=== PATIENT | male | born 1970 | race Caucasian/White ===

== ENCOUNTER 2024-10-30 12:42 | Outpatient (CLI) | payer BC, SELFPAY | END 2024-10-30 12:43 | disposition home or self-care (01) | LOC: WOUND 12:43 | PROVIDERS: PCP Nurse Practitioner Family; Visit Provider Nurse Practitioner Family | DX: E11.621 Type 2 diabetes mellitus with foot ulcer (principal); I73.9 Peripheral vascular disease, unspecified; I10 Essential (primary) hypertension; L97.514 Non-pressure chronic ulcer of other part of right foot with necrosis of bone; Z79.4 Long term (current) use of insulin; Z79.84 Long term (current) use of oral hypoglycemic drugs; Z72.0 Tobacco use | CPT/HCPCS: G0463 ==

== ENCOUNTER 2024-10-31 10:07 | Outpatient (CLI) | payer BC, SELFPAY | END 2024-10-31 10:08 | disposition home or self-care (01) | LOC: WOUND 10:07 | PROVIDERS: PCP Nurse Practitioner Family; Visit Provider Nurse Practitioner Family | DX: E11.621 Type 2 diabetes mellitus with foot ulcer (principal); I73.9 Peripheral vascular disease, unspecified; I10 Essential (primary) hypertension; L97.514 Non-pressure chronic ulcer of other part of right foot with necrosis of bone; Z79.4 Long term (current) use of insulin; Z79.84 Long term (current) use of oral hypoglycemic drugs | CPT/HCPCS: G0463 ==

== ENCOUNTER 2024-10-31 10:47 | Outpatient (CLI) | payer BC, SELFPAY ==
--- OUTSIDE RECORDS SUMMARY | 2024-10-24 14:40 | XMS_ITS | Encounter Summary ---
Author Organization [facility] Address [address] [place] [address] Care Team Providers Care President Educational Institution Name Role Phone Olimpia Escalera APRN, C.N.P., M.S.N. Primary Care Provider Reason for Referral * Outpatient (Routine) - Authorized Specialty Diagnoses / Procedures Referred By Contac t Referred To Contact Family Medicine Diagnoses Diabetes Mellitus Type 2 With Diabetic Neuropathy (HCC) Daniel Vaughn M.D. [address] [place] [phone] Phone: tel: fax: [facility] Region Referral ID Status Reason Start Date Expiration Date V isits Requested Visits Authorized [id number] Authorized 10/24/2024 04/25/2026 1 1 Reason for Visit * Reason Comments Pre-op Exam Infection cleaned ou t of Amputation site on right foot. 10/28/2024 @ [facility]. Would like muscle relaxer for neck * Appointment Request (Routine) - Closed Specialty Diagnoses / Procedures Referred By Contac t Referred To Contact Family Medicine Referral ID Status Reason Start Date Expiration Date Visits Re quested Visits Authorized [id number] Closed 10/21/2024 01/21/2026 1 1 Encounter Details Date Type Department Care Team (Latest Contact Info) Description 10/24/2024 2:40 PM CDT Office Visit Department of Family Medicine, [facility], in [place] [address] [place] [id number] Daniel Vaughn M.D. [address] [place] [phone] Diabetes Mellitus Type 2 With Diabetic Neuropathy (HCC) (Primary Dx); Preoperative Exam; Hypertensive Chronic Kidney Disease With Stage 1 Through Stage 4 Chronic Kidney Disease, Or Unspecified Chronic Kidney Disease; Hyperlipidemia; Unspecified Atherosclerosis Of [place] Arteries Of Extremities Right Leg; Dependence Nicotine; Gout Discharge Disposition: Home or Self Care Social History Tobacco Use Types Packs/Day Years Used Date Smoking Tobacco: Every Day Cigarettes 1 20 Smokeless Tobacco: Never Tobacco Cessation:Ready to Q uit: No; Counseling Given: Yes Comments:refused Alcohol Use Standard Drinks/Week Comments Yes 1 (1 standard drink = 0.6 oz pur e alcohol) per pt 1 drink a week Humiliation, Afraid, Rape, and Kick questionnair e Answer Date Recorded Within the last year, have y ou been afraid of your partner or ex-partner? Patient declined 04/30/2020 Within the last year, have y ou been humiliated or emotionally abused in other ways by your partner or ex-partner? No 04/30/2020 Within the last year, have y ou been kicked, hit, slapped, or otherwise physically hurt by your partner or ex-partner? No 04/30/2020 Within the last year, have y ou been raped or forced to have any kind of sexual activity by your partner or ex-partner? No 04/30/2020 Social Connection and Isolation Panel [NHANES] A nswer Date Recorded Frequency of Communication with Friends and Fami ly Not on file 04/30/2020 Frequency of Social Gatherings with Friends and Family Not on file 04/30/2020 Attends Anabaptism Services Not on file 04/30 Do you belong to any clubs o r organizations such as sikhism groups, unions, fraternal or athletic groups, or school groups? Patient declined 04/30/2020 Attends Club or Organization Meetings Not on han e 04/30/2020 Are you , , di vorced, , never , or living with a partner? 04/30/2020 AUDIT-C Answer Date Recorded Q1: How often do you have a drink containing alc ohol? 2-3 times a week 04/30/2020 Q2: How many drinks containi ng alcohol do you have on a typical day when you are drinking? Patient declined 04/30/2020 Q3: How often do you have si x or more drinks on one occasion? Monthly 04/30/2020 Overall Financial Resource Strain (CARDIA) Answe r Date Recorded How hard is it for you to pa y for the very basics like food, housing, medical care, and heating? Not hard at all 04/30/2020 PHQ-2 Answer Date Recorded PHQ-2 Score 0 10/24/2024 Hunger Vital Sign Answer Date Recorded Within the past 12 months, y ou worried that your food would run out before you got the money to buy more. Never true 04/30/20 20 Within the past 12 months, t he food you bought just didn't last and you didn't have money to get more. Never true 04/30/2020 Depression Answer Date Recor ded PHQ-9 Total Score (max 27) 6 10/12 Nutrition Answer Date Recorded Nutrition: EVOO Fat Source No 04/30 On average, how many serving s of fruits and vegetables do you eat per day (serving size is equal to 1 cup or approximately the size of a tennis ball)? 0-1 04/30/2020 Dental Answer Date Recorded Dental: Regular Dentist Unknown 05/03/20 23 Education Answer Date Recorded What is the highest level of school you have completed or the highest degree you have received? 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 - 10/24/2024 2:40 PM CDT Venkatesh Green [phone] REASON FOR VISIT: No chief complaint on file. HISTORY OF PRESENT ILLNESS: Venkatesh Green is a 54 y.o. male who is here today for pre-operative clearance. He has no complaints and reports he is in his usual state of health. 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 He has been told he still has some infection and nonviable tissue in the area and will be having a procedure to address this. REQUESTING PROVIDER: Dr Krause, [facility] [place] PROPOSED PROCEDURE: Revision of toe amputation right foot DATE OF PROCEDURE: 10/28/2024 INDICATIONS FOR PROCEDURE: HOSPITAL/SURGICAL FACILITY:[facility] Type of Anesthesia Anticipated: Unknown Primary Physician: Olimpia Escalera APRN, C.N.P., M.S.N. CARDIOVASCULAR STATUS History of ischemia heart disease: no Previous IN: no Exertional chest pain or SOB:No History of cerebrovascular disease: no History of heart failure: no Can you climb a flight of stairs or walk up a hill? Can you walk on level ground at 4 mph (6.4 kph) for at least 2 blocks? PULMONARY STATUS Asthma/COPD: no RENAN: no Smoking history: yes 1/2 PPD Renal insufficiency: no Liver disease or cirrhosis: no Bloodborne infectious history: no Appliances or implants: no Presence of loose teeth or dental prosthetics: yes Dentures Alcohol dependence: no Diabetes mellitus: yes History of anaesthesia complications:No Family history of anesthesia complications:No Family history of malignant hyperthermia or pseudocholinesterase deficiency: No History of bleeding complications:No History of blood transfusions: No Preoperative Questions: NO - Do you currently have a cold, bronchitis or other respiratory infection? NO - Have you had a cold, bronchitis or other respiratory infection within the last 2 weeks? NO - Do you or anyone in your family have previous history of blood clots? NO - Do you or does anyone in your family have a serious bleeding problem such as prolonged bleeding following surgeries or cuts? NO - Have you ever had problems with anemia or been told to take iron pills? NO - Have you had any abnormal blood loss such as black, tarry or bloody stools, or abnormal vaginal bleeding? NO - Have you ever had a blood transfusion? NO - Do you have sleep apnea, excessive snoring or daytime drowsiness? NO - Do you have any prosthetic heart valves? NO - Do you have prosthetic joints? NO - Is there any chance that you may be ? PAST MEDICAL HISTORY Medical History[1] PAST SURGICAL HISTORY Surgical History[2] MEDICATIONS Current Medications[3] ALLERGIES No Known Allergies FAMILY HISTORY Family History[4] The following portions of the patient's history were reviewed and updated as appropriate: Allergies, current medications, family history, medical history, social history, surgical history and problemlist. PHYSICAL EXAMINATION: There were no vitals taken for this visit. There is no height or weight on file to calculate BMI. Constitutional General: He is not in acute distress. Appearance: Normal appearance. Neck Vascular: No carotid bruit. Cardiovascular Rate and Rhythm: Normal rate and regular rhythm. Heart sounds: Normal heart sounds. No murmur heard. Pulmonary Breath sounds: Normal breath sounds. No wheezing or rales. Abdominal General: There is no distension. Palpations: Abdomen is soft. There is no mass. Tenderness: There is no abdominal tenderness. Musculoskeletal Cervical back: Neck supple. No tenderness. Lymphadenopathy Cervical: No cervical adenopathy. Neurological Mental Status: He is alert. DIAGNOSTICS/LAB Lab Results Component Value Date NA 141 08/26/2024 CL 101 08/26/2024 CREATININE 0.82 08/26/2024 EGFR >90 08/26/2024 BUN 17 08/26/2024 ANIONGAP 13 08/26/2024 GLUCOSE 144 (H) 08/26/2024 CALCIUM 9.8 08/26/2024 Lab Results Component Value Date WBC 8.9 08/26/2024 HGB 16.4 08/26/2024 HCT 48.6 08/26/2024 MCV 86.2 08/26/2024 PLT 456 (H) 08/26/2024 Lab Results Component Value Date HGBA1C 10.4 (H) 08/26/2024 HGBA1C 8.1 (H) 11/01/2023 HGBA1C 7.0 (H) 10/13/2022 Lab Results Component Value Date CHOL 115 11/01/2023 Lab Results Component Value Date HDL 41 11/01/2023 Lab Results Component Value Date LDLCALC 62 11/01/2023 Lab Results Component Value Date TRIG 54 11/01/2023 Lab Results Component Value Date TTLCHOLHDLRT 3.5 05/03/2012 ASSESSMENT #1 Preoperative Exam He is medically optimized as much as feasibly possible preoperatively. The patient is of medically satisfactory risk profile for planned procedure. He was provided with a written dosing instructions regarding preoperative use of his medications. Additionally, we discussed he should stop empagliflozin today and clopidogrel 3 days pre-procedure.He expressed understanding. #2 Diabetes Mellitus Type 2 With Diabetic Neuropathy (HCC) He was encouraged to schedule follow-up with his PCP as soon as possible to initiate more intensivemanagement of this problem. #3 Hypertensive Chronic Kidney Disease With Stage 1 Through Stage 4 Chronic Kidney Disease, Or Unspecified Chronic Kidney Disease Normotensive with current regimen. #4 Hyperlipidemia Most recent lipid profile was favorable. We discussed importance of long-term statin therapy. #5 Unspecified Atherosclerosis Of [place] Arteries Of Extremities Right Leg He recently had vascular procedures of his right leg and reports this has been of benefit. #6 Dependence Nicotine He was counseled regarding smoking cessation. #7 Gout He has recently been asymptomatic. Perez Vaughn M.D. 10/24/2024 2:00 PM CDT [1] Past Medical History: Diagnosis Date Diabetes Mellitus NOS [2] Past Surgical History: Procedure Laterality Date SPINE SURGERY [3] Current Outpatient Medications: allopurinoL (Zyloprim) 100 mg tablet, Take 1 tablet (100 mg total) by mouth daily., Disp: 100 tablet, Rfl: 1 amLODIPine (Norvasc) 10 mg tablet, Take 1 tablet (10 mg total) by mouth daily., Disp: 100 tablet, Rfl: [address] tablet, Take 1 tablet by mouth daily., Disp: , Rfl: atorvastatin (Lipitor) 40 mg tablet, Take 1 tablet (40 mg total) by mouth daily., Disp: 100 tablet,Rfl: 1 empagliflozin (Jardiance) 25 mg tablet, Take 1 tablet (25 mg total) by mouth every morning before breakfast., Disp: 100 tablet, Rfl: 1 gabapentin (Neurontin) 300 mg capsule, Take 1 capsule (300 mg total) by mouth at bedtime., Disp: 100 capsule, Rfl: 1 glimepiride (AmaryL) 4 mg tablet, Take 2 tablets (8 mg total) by mouth daily with breakfast., Disp:200 tablet, Rfl: 1 ibuprofen 800 mg tablet, Take 800 mg by mouth every 6 (six) hours as needed for pain., Disp: , Rfl: insulin glargine (Lantus Solostar U-100 Insulin) 100 unit/mL (3 mL) injection, Inject 16 Units under the skin at bedtime., Disp: 14.4 mL, Rfl: 2 lisinopriL 40 mg tablet, Take 1 tablet (40 mg total) by mouth daily., Disp: 100 tablet, Rfl: 1 metFORMIN XR (Glucophage-XR) 500 mg 24 hr tablet, Take 4 tablets (2,000 mg total) by mouth daily with breakfast., Disp: 360 tablet, Rfl: 1 metoprolol succinate (Toprol XL) 50 mg 24 hr tablet, Take 1 tablet (50 mg total) by mouth daily. Donot crush or chew., Disp: 100 tablet, Rfl: 1 [4] Family History Problem Relation Name Age of Onset Diabetes Mother 54 Diabetes Brother Chidi Tobacco abuse Father 91 CABG - Coronary artery bypass graft Father Diabetes Maternal Grandmother Diabetes Brother Fermin Coronary artery disease Brother Fermin documented in this encounter Plan of Treatment Upcoming Encounters Date Type Department Care Team (Late st Contact Info) Description 11/24/2024 8:10 AM CDT Appointment Department of Laboratory Medicine in [address] [place] [phone] Olimpia Escalera APRN, C.N.P., M.S.N. [address] [place] [address], [place] [phone] 11/25/2024 11:40 AM CDT Office Visit Department of Family Medicine, [facility], in [address] [place] [phone] Olimpia Escalera APRN, C.N.P., M.S.N. [address] [place] [address], [place] [phone] Discharge Disposition: Home or Self Care Scheduled Referrals Name Type Priority Associated Diagnoses Orde r Schedule Family Medicine office visit (clinic) Outpatient Referral Routine Diabetes Mellitus Type 2 With Diabetic Neuropathy (HCC) Expected: 11/23/2024, Expires: 01/24/2026 documented as of this encounter Visit Diagnoses Diagnosis Diabetes Mellitus Type 2 With Diabetic Neuropathy (HCC)- Primary Preoperative Exam Hypertensive Chronic Kidney Disease With Stage 1 Through Stage 4 Chronic Kidney Disease, Or Unspecified Chronic Kidney Disease Hyperlipidemia Unspecified Atherosclerosis Of [place] Arteries Of Extremities Right Leg Dependence Nicotine Gout documented in this encounter Additional Health Concerns Assessment Noted Time PHQ-9 Depression Total Score: 6 10/13/19 20 2:04 PM CDT documented as of this encounter Care Teams President Educational Institution Relationship Specialty Start Date End Date Olimpia Escalera APRN, C.N.P., M.S.N. [address] [place] [phone] PCP - General 08/21/19 documented as of this encounter
--- NOTE | 2024-10-31 10:45 | CRLHL7_ITS ---
For Patients: As a result of the Century Cures Act, medical imaging exams and procedure reports are released immediately into your electronic medical record. You may view this report before your referring provider. If you have questions, please contact your health care provider. Indication: Nicotine withdrawal, hypertension and diabetes. Technique: Chest 2 views Comparison: None Findings/Impression: Cardiovascular and mediastinum: Heart size and vasculature are normal in caliber and appearance. Mediastinum is within normal limits. Lungs and pleural spaces: Lungs are clear. No sign of infiltrate or mass. No sign of pleural effusion. No pneumothorax. Bones and soft tissues: No significant findings. Dictated by Reji Scott MD @ 10/31/2024 11:52:47 AM (Electronically Signed)
--- OUTSIDE RECORDS SUMMARY | 2024-10-31 10:56 | XMS_ITS | Clinical Summary ---
Author Organization [facility] Address [address] [place] [address] Care Team Providers Care Engraver Copperplate Name Role Phone Olimpia Escalera APRN, C.Naila, M.S.N. Primary Care Provider Source Comments Patient records contain information from all sites at [facility]. For routine questions regarding patient records, call [phone] during business hours, M-F 8:00 AM - 5:00 PM Central Time. Record requests for emergency care only can be directed to [phone] at any time.[facility] Allergies No known active allergies Medications aspirin [address] tablet Take 1 tablet by mouth daily. 1 Active gabapentin (Neurontin) 300 mg capsule Take 1 capsule (300 mg total) by mouth at bedtime. 100 capsule 1 4 Active empagliflozin (Jardiance) 25 mg tablet Take 1 tablet (25 mg total) by mouth every morning before breakfast. 100 tablet 1 4 Active lisinopriL 40 mg tablet Take 1 tablet (40 mg total) by mouth daily. 100 tablet 1 4 11/02/19 25 Active glimepiride (AmaryL) 4 mg tablet Take 2 tablets (8 mg total) by mouth daily with breakfast. 200 tablet 1 4 11/02/19 25 Active atorvastatin (Lipitor) 40 mg tablet Take 1 tablet (40 mg total) by mouth daily. 100 tablet 1 4 11/02/19 25 Active metoprolol succinate (Toprol XL) 50 mg 24 hr tablet Take 1 tablet (50 mg total) by mouth daily. Do not crush or chew. 100 tablet 1 4 Active amLODIPine (Norvasc) 10 mg tablet Take 1 tablet (10 mg total) by mouth daily. 100 tablet 1 4 Active allopurinoL (Zyloprim) 100 mg tablet Take 1 tablet (100 mg total) by mouth daily. 100 tablet 1 4 11/02/19 25 Active ibuprofen 800 mg tablet Take 800 mg by mouth every 6 (six) hours as needed for pain. Active clopidogreL (Plavix) 75 mg tablet Take 75 mg by mouth daily. Active doxycycline hyclate (LymePak) 100 mg tablet Take 100 mg by mouth 2 (two) times a day. Active oxyCODONE (Roxicodone) 5 mg immediate release tablet Take 5 mg by mouth every 6 (six) hours as needed for severe pain or score 7-10 of 10. Active insulin glargine (Lantus Solostar U-100 Insulin) 100 unit/mL (3 mL) pen Inject 16 Units under the skin at bedtime. 14.4 mL 2 5 10/25/19 26 Active metFORMIN XR (Glucophage-XR) 500 mg 24 hr tablet Take 4 tablets (2,000 mg total) by mouth daily with morning meal. 360 tablet 1 5 10/25/19 26 Active insulin glargine (Lantus Solostar U-100 Insulin) 100 unit/mL (3 mL) injection Inject 16 Units under the skin at bedtime. 14.4 mL 2 4 10/25/19 25 Discontinu ed(Reorder ) metFORMIN XR (Glucophage-XR) 500 mg 24 hr tablet Take 4 tablets (2,000 mg total) by mouth daily with breakfast. 360 tablet 1 4 10/25/19 25 Discontinu ed(Reorder ) Active Problems Problem Noted Date Diagnosed Date Diabetes Mellitus Type 2 With Diabetic Neuropath y 11/02/2023 Stenosis Spinal Cervical 07/07/2022 Fatty Liver 01/03/2021 Assessment & Plan (06/23/2022 3:09 PM PAPER NOVELTY MAKER): 4 light beers per day, not looking to quit Erythrocytosis 10/14/2020 Leukocytosis 10/14/2020 Assessment & Plan (06/23/2022 3:10 PM PAPER NOVELTY MAKER): Patient declines further work up Neutrophilia 10/14/2020 Thrombocytosis Unspecified 10/14/2020 Gout 09/24/2020 Unspecified Atherosclerosis Of [place] Arteries Of Extremities Right Leg 10/20/2019 Assessment & Plan (06/23/2022 3:09 PM PAPER NOVELTY MAKER): Refuses to follow-up with vascular medicine Hypertensive Chronic Kidney Disease With Stage 1 Through Stage 4 Chronic Kidney Disease, Or Unspecified Chronic Kidney Disease 10/13/2019 Assessment & Plan (06/23/2022 3:10 PM PAPER NOVELTY MAKER): BP suboptimal. Patient misses doses of his hypertension meds, states he hasn't taken them for 3/4 weeks Hyperlipidemia 10/13/2019 Assessment & Plan (06/23/2022 3:10 PM PAPER NOVELTY MAKER): Has a high risk for ASCVD, smoker, ETOH Continue atorvastatin Dependence Nicotine 05/24/2015 Assessment & Plan (06/23/2022 3:09 PM PAPER NOVELTY MAKER): 2-3 packs per day of cigarettes, not looking to quit Resolved Problems Problem Noted Date Diagnosed Date Resolved Date Maintenance Health Adult 10/13/201912/2019 Diabetes Mellitus Type 2 Hyperglycemia 11/06/2016 10/24/2024 Overview (11/18/2016): DM2 Uncontrolled Hypertension Benign Renovascular 05/24/2015 10/12/2019 Overview (10/03/2016): Hypertension (HTN) Essential Benign Encounters Date Type Department Care Team Description 10/24/2024 2:40 PM CDT Office Visit Department of Family Medicine, [facility], in [address] [address] Daniel Vaughn M.D. Diabetes Mellitus Type 2 With Diabetic Neuropathy (HCC) (Primary Dx); Preoperative Exam; Hypertensive Chronic Kidney Disease With Stage 1 Through Stage 4 Chronic Kidney Disease, Or Unspecified Chronic Kidney Disease; Hyperlipidemia; Unspecified Atherosclerosis Of [place] Arteries Of Extremities Right Leg; Dependence Nicotine; Gout Discharge Disposition: Home or Self Care 10/15/2024 Clinical Communication Department of [facility], [facility], [address] [place] [address] Olimpia Escalera APRN, C.N.P., M.S.N. 10/14/2024 Orders Only [facility] Olimpia Escalera APRN, Jennifer.N.P., M.S.N. Diabetes Mellitus Type 2 With Diabetic Neuropathy (HCC) 09/19/2024 Clinical Communication Department of Family [facility], [facility], [address] [place] [address] Olimpia Escalera APRN, C.N.P., M.S.N. 09/08/2024 Clinical Communication Department of [facility], [facility], [address] [place] [address] Olimpia Escalera APRN C.N.P., M.S.N. 09/08/2024 Clinical Communication Department of [facility], [facility], [address] [place] [address] Olimpia Escalera APRN C.N.P., M.S.N. 08/26/2024 9:34 AM CDT - 08/26/2024 11:59 PM T Hospital Encounter Department of Laboratory Medicine in [address] [place] [address] Salvador Alcaraz M.D. Atherosclerosis Of [place] Arteries Of Right Leg With Ulceration Of Other Part Of Lower Leg (HCC); Amputation Toe Status Post Right; Diabetes Mellitus Type 2 (HCC) Discharge Disposition: Home or Self Care 08/26/2024 Clinical Communication Department of Family [facility], [facility], in [address] [place] [address] Olimpia Escalera APRN, C.N.P., M.S.N. 08/17/2024 10:55 AM CDT Ancillary Procedure Department of Emergency Medicine 08/17/2024 10:50 AM CDT Ancillary Procedure Department of Emergency Medicine 08/17/2024 10:32 AM CDT - 08/17/2024 3:23 PM CDT Emergency [facility] [address] [facility] [place] [address] Kenneth Nevarez P.A.-C. Osteomyelitis ([facility]) (Primary Dx) Discharge Disposition: Acute Care Hospital 08/17/2024 - 08/17/2024 11:59 PM CDT Emergency [facility] [address] [place] [phone] Discharge Disposition: Home or Self Care 08/15/2024 Clinical Communication Department of Family Medicine, [facility], in [place], [place] [address] [facility] [place] [address] Olimpia Escalera, SHAHNAZ, C.N.P., M.S.N. 08/05/2024 Orders Only Department of Pulmonary Medicine in [place], [place] [address] [place] [address] Edmund Chew M.D. from Last 3 Months Immunizations Immunization Administration Dates Next Due DTaP (Infanrix, Tripedia) 03/10/2008 HepB Adult 11/02/2023(Deferred: Patient Ref used) Influenza, Unspecified 03/04/2020,03/14/2010,04/2008 PCV20 11/02/2023(Deferred: Patient Ref used) PPSV23 03/25/2008,03/25/2008 SARS-COV-2 (COVID-19) - PFIZ ER (Discontinued)(12 years or older) 01/28/2021,01/03/2021 Td Preservative Free (TENIVA C, DECAVAC) 10/28/2018 Tdap 03/09/2008 influenza vaccine QV(FLUBLOK ) (18 years or older) (PF) 03/04/2020 influenza vaccine quad (FLUZONE/FLUARIX) (6 months and older)(PF) 04/01/2021,02/18/2018,03/21/2017 Family History Medical History Relation Name Comments Diabetes Brother 1 Chidi Coronary artery disease Brother 4 Fermin Diabetes Brother 4 Fermin CABG - Coronary artery bypass graft Father Tobacco abuse Father Diabetes Maternal Grandmother Diabetes Mother Relation Name Status Comments Brother 1 Chidi Alive Brother 2 Urbano Alive Brother 3 Hernandez Alive Brother 4 Fermin Alive Father Alive Maternal Grandmother Mother Social History Tobacco Use Types Packs/Day Years [...] and Family Not on file 04/30/2020 Attends [employer]ism Services Not on file 04/30 Do you belong to any clubs o r organizations such as amish groups, unions, fraternal or athletic groups, or [...] Sex Assigned at Male 03/21/2017 4:02 PM PAPER NOVELTY MAKER Legal Sex Male 9:13 PM PAPER NOVELTY MAKER Gender Identity Male 03/21/2017 4:02 PM PAPER NOVELTY MAKER Sexual Orientation Straight 03/21/2017 4: 02 PM PAPER NOVELTY MAKER Last Filed Vital Signs Vital Sign Reading Time Taken Comments Blood Pressure 138/76 10/24/2024 2:31 PM CDT Pulse 80 10/24/2024 2:31 PM CDT Temperature 36.4 C (97.5 F) 10/24/2024 2:29 PM CDT Respiratory Rate 18 10/24/2024 2:29 PM CDT Oxygen Saturation 97% 08/17/2024 3:1 5 PM CDT Inhaled Oxygen Concentration - - Weight 90.3 kg (199 lb 1.2 oz) 10/24/2024 2:29 PM CDT Height 183.9 cm (6' 0.4) 11/02/2023 9: 55 AM CDT with shoes on Body Mass Index 26.7 11/02/2023 9:55 AM CDT Plan of Treatment Upcoming Encounters Date Type Department Care Team (Late st Contact Info) Description 11/24/2024 8:10 AM CDT Appointment Department of Laboratory Medicine in [address] [place] [address] Olimpia Escalera APRN, C.N.P., M.S.N. [address] [place] [address], [place] [address] 11/25/2024 11:40 AM CDT Office Visit Department of Family Medicine, [facility], in [address] [place] [address] Olimpia Escalera APRN, C.N.P., M.S.N. [address] [place] [phone] Discharge Disposition: Home or Self Care Health Maintenance Due Date Last Done Comments CT Colonography 1969 Cologuard 1969 Colonoscopy 1969 Colorectal Cancer Screening 1969 FIT 1969 HIV Screening 1969 Lung Cancer Screening 1969 Hepatitis B Vaccines (1 of 3 - 19+ 3-dose series) 1988 Pneumococcal vaccine (50+ years) (2 of 2 - PCV) 03/25/2009 03/25/2008, 03/25/2008 Zoster Vaccines (1 of 2) 2019 Dilated Eye Exam 06/26/2023 06/26/2022 (Per formed elsewhere), 10/04/2017 (Performed elsewhere), 09/24/2017 (Performed elsewhere) COVID-19 Vaccine (2023- season) 2024 01/28/2021, 01/03/2021 Influenza Vaccine (#1) 2024 , 03/04/2020, 03/04/2020, Additional history exists Urine Albumin 10/31/2024 11/01/2023, 01/14, 08/27/2020, Additional history exists Diabetic Office Visit with Foot Exam 11/01/2024 11/02/2023, 02/17/2022, 09/24/2020, Additional history exists Hemoglobin A1C 11/25/2024 08/26/2024, 10/13, 10/13/2022, Additional history exists Creatinine Level (Kidney Function Test) 08/26/2025 08/26/2024, 08/20/2024, 08/19/2024, Additional history exists Potassium Level 08/26/2025 08/26/2024, 04/0 01/2025, 08/19/2024, Additional history exists Sodium Level 08/26/2025 08/26/2024, 04/0 11/2024, 08/17/2024, Additional history exists Office Visit for Blood Pressure Check / Re-check 10/24/2025 10/24/2024 Tobacco Cessation counseling 10/24/2025 10/24/2024, 10/24/2024 Visit: Chronic Disease, age 18+ 10/24/2025 10/24/2024, 10/24/2024 DTaP,Tdap,and Td Vaccines (4 - Td or Tdap) 10/28/2028 10/28/2018, 03/10/2008, 03/09/2008 Lipid (Cholesterol) Screening 10/31/2028 11/01/2023, 02/10/2022, 12/31/2020, Additional history exists Hepatitis B Screening Discontinued 08/18/2022 Depression Screening (Annual PHQ-2) Completed 10/24/2024, 10/24/2024 IPV Vaccines Aged Out No longer eligi ble based on patient's age to complete this topic Procedures Procedure Name Priority Date/Time Associated Diagnosis Comments COMPREHENSIVE METABOLIC PANEL, S/P Routine 08/26/2024 9:41 AM CDT Atherosclerosis Of [place] Arteries Of Right Leg With Ulceration Of Other Part Of Lower Leg (HCC) Amputation Toe Status Post Right Diabetes Mellitus Type 2 (HCC) CBC WITH DIFFERENTIAL, B Routine 08/26/2024 9:41 AM CDT Atherosclerosis Of [place] Arteries Of Right Leg With Ulceration Of Other Part Of Lower Leg (HCC) Amputation Toe Status Post Right Diabetes Mellitus Type 2 (HCC) HEMOGLOBIN A1C, B Routine 08/26/2024 9:4 1 AM CDT Atherosclerosis Of [place] Arteries Of Right Leg With Ulceration Of Other Part Of Lower Leg (HCC) Amputation Toe Status Post Right Diabetes Mellitus Type 2 (HCC) MR FOOT RIGHT WITHOUT AND WITH IV CONTRAST RAD - Semiurgent (Fast; most ED patients; some inpatients) 08/18/2024 8:31 AM CDT BACTERIA / GILDA CULTURE, BLOOD STAT 08/17/2024 11:56 AM CDT BACTERIA / GILDA CULTURE, BLOOD STAT 08/17/2024 11:52 AM CDT DX TOES RIGHT 3 VIEWS RAD - Semiurgent (Fast; most ED patients; some inpatients) 08/17/2024 11:13 AM CDT EMERGENCY DEPARTMENT IMAGE EXAM Routine 08/17/2024 10:55 AM CDT BASIC METABOLIC PANEL, S/P STAT 08/17/2024 10:53 AM CDT CBC WITH DIFFERENTIAL, B STAT 08/17/2024 10:53 AM CDT LACTATE FOR SEPSIS WITH REFLEX STAT 08/17/2024 10:52 AM CDT C-REACTIVE PROTEIN (CRP), S/P STAT 08/17/2024 10:52 AM CDT EMERGENCY DEPARTMENT IMAGE EXAM Routine 08/17/2024 10:50 AM CDT ALBUMIN, RANDOM, U Routine 11/01/2023 8: 30 AM CDT Diabetes Mellitus Type 2 Hyperglycemia (HCC) LIPID PANEL, S Routine 11/01/2023 8:23 AM CDT Hypertension And Chronic Kidney Disease Stage 2 Diabetes Mellitus Type 2 Hyperglycemia (HCC) Gout HEPATITIS B SURFACE ANTIGEN Routine 08/18/2022 12:53 PM CDT Fatty Liver Diabetes Mellitus Type 2 Hyperglycemia (HCC) from Last 3 Months or Most Recently Relevant to Health Maintenance Results * (ABNORMAL) CBC with Differential, Blood (08/26/2024 9:41 AM CDT) Only the most recent of2 resultswithin the time period is included. Hemoglobin 16.4 13.2 - 16.6 g/dL 08/26/2024 10:26 AM CDT [facility] Hematocrit 48.6 38.3 - 48.6 % 08/26/2024 10:26 AM CDT [facility] Erythrocytes 5.64 4.35 - 5.65 x10(12)/L 08/26/2024 10:26 AM CDT [facility] MCV 86.2 78.2 - 97.9 fL 08/26/2024 10:26 AM CDT [facility] RBC Distrib Width 13.1 11.8 - 14.5 % 08/26/2024 10:26 AM CDT [facility] Platelet Count 456(H) 135 - 317 x10(9)/L 08/26/2024 10:26 AM CDT [facility] Leukocytes 8.9 3.4 - 9.6 x10(9)/L 08/26/2024 10:26 AM CDT [facility] Neutrophils 5.41 1.56 - 6.45 x10(9)/L 08/26/2024 10:26 AM CDT [facility] Lymphocytes 2.59 0.95 - 3.07 x10(9)/L 08/26/2024 10:26 AM CDT [facility] Monocytes 0.52 0.26 - 0.81 x10(9)/L 08/26/2024 10:26 AM CDT [facility] Eosinophils 0.27 0.03 - 0.48 x10(9)/L 08/26/2024 10:26 AM CDT [facility] Basophils 0.07 0.01 - 0.08 x10(9)/L 08/26/2024 10:26 AM CDT [facility] Blood (Blood, Venous) 08/26/2024 9:41 AM CDT 08/26/2024 9:41 AM CDT Salvador Alcaraz M.D. LAB BLOOD ADD-ON Final R esult Performing Organization Address City/[facility] Co de Phone Number [facility] [address] [place] [phone], [facility] in [address] [address] * (ABNORMAL) Hemoglobin A1c (08/26/2024 9:41 AM CDT) Hemoglobin A1c, B 10.4(H) 4.2 - 5.6 % 08/26/2024 9:59 AM CDT [facility] Comment: Hemoglobin A1c values greater than or equal to 6.5 percent are diagnostic for diabetes mellitus. Diagnosis should be confirmed by repeat testing. In diabetic patients, HbA1c goals should be discussed with healthcare provider. Blood (Blood, Venous) 08/26/2024 9:41 AM CDT 08/26/2024 9:41 AM CDT Salvador Alcaraz M.D. LAB BLOOD ADD-ON Final R esult Performing Organization Address City/[facility]/ZIP Co de Phone Number [facility] [address] [place] [phone], [facility] in [address] [address] * (ABNORMAL) Comprehensive Metabolic Panel (08/26/2024 9:41 AM CDT) Potassium, P 4.5 3.6 - 5.2 mmol/L 08/26/2024 10:01 AM CDT [facility] Sodium, P 141 135 - 145 mmol/L 08/26/2024 10:01 AM CDT [facility] Chloride, P 101 98 - 107 mmol/L 08/26/2024 10:01 AM CDT [facility] Bicarbonate, P 27 22 - 29 mmol/L 08/26/2024 10:01 AM CDT [facility] Anion Gap, P 13 7 - 15 08/26/2024 10:01 AM CDT [facility] BUN (Blood Urea Nitrogen), P 17 8 - 24 mg/dL 08/26/2024 10:01 AM CDT [facility] Creatinine 0.82 0.74 - 1.35 mg/dL 08/26/2024 10:01 AM CDT [facility] Estimated GFR (eGFR) >90 >=60 mL/min/BS A 08/26/2024 10:01 AM CDT [facility] Comment: Estimated GFR calculated using the 2020 CKD_EPI creatinine equation. Calcium, Total, P 9.8 8.6 - 10.0 mg/dL 08/26/2024 10:01 AM CDT [facility] Glucose, P 144(H) 70 - 140 mg/dL 08/26/2024 10:01 AM CDT [facility] Protein, Total, P 7.5 6.3 - 7.9 g/dL 08/26/2024 10:01 AM CDT [facility] Albumin, P 4.6 3.5 - 5.0 g/dL 08/26/2024 10:01 AM CDT [facility] Aspartate Aminotransferase (AST), P 18 8 - 48 U/L 08/26/2024 10:01 AM CDT [facility] Alkaline Phosphatase, P 81 40 - 129 U/L 08/26/2024 10:01 AM CDT [facility] Alanine Aminotransferase (ALT), P 19 7 - 55 U/L 08/26/2024 10:01 AM CDT [facility] Bilirubin, Total, P 0.3 0.0 - 1.2 mg/dL 08/26/2024 10:01 AM CDT [facility] Blood (Blood, Venous) 08/26/2024 9:41 AM CDT 08/26/2024 9:41 AM CDT us Salvador Alcaraz M.D. LAB BLOOD ADD-ON Final R esult [facility] [address] [place] [phone], [facility] in [address] [address] * MR Foot Right without and with IV Contrast (08/18/2024 8:31 AM CDT) Anatomical Region Laterality Modality Lower Extremity, Foot, Muscu loskeletal RST LOS, Musculoskeletal ARZ LOS, Muskuloskeletal FLA LOS Right Magne tic Resonance Impressions 08/18/2024 8:51 AM CDT First IP septic arthritis with surrounding osteomyelitis involving head/neck of first proximal phalanx and base of first distal phalanx. Narrative 08/18/2024 8:51 AM CDT EXAM: MR FOOT RIGHT WITHOUT AND WITH IV CONTRAST COMPARISON:Radiograph from yesterday. FINDINGS: This MRI is dedicated to the right toes. There is a wound along the dorsal aspect of first IP joint. First IP joint has joint effusion and synovitis, suggesting septic arthritis (series 11 images 7-11). There is abnormal surrounding bone marrow in the head/neck of the first proximal phalanx and base of first distal phalanx with articular erosions, T1 hypointensity, T2 hyperintensity, and enhancement. This is compatible with osteomyelitis surrounding the septic arthritis. Negative for abscess. Diffuse subcutaneous edema. There is 4 mm linear metallic foreign body in the soft tissues between the bases of first and second proximal phalanges (series 11 image 12). There is no inflammation surrounding the foreign body. First MTP degenerative joint disease with subchondral cysts and marginal osteophytes. Bunion. Results discussed with Dr. Santos Short at 08/18/2024 8:33 AM. Procedure Note Fredo Clark M.D. - 08/18/2024 EXAM: MR FOOT RIGHT WITHOUT AND WITH IV CONTRAST COMPARISON:Radiograph from yesterday. FINDINGS: This MRI is dedicated to the right toes. There is a wound alongthe dorsal aspect of first IP joint. First IP joint has joint effusion andsynovitis, suggesting septic arthritis (series 11 images 7-11). There isabnormal surrounding bone marrow in the head/neck of the first proximal phalanx and base of first distalphalanx with articular erosions, T1 hypointensity, T2 hyperintensity, andenhancement. This is compatible with osteomyelitis surrounding the septicarthritis. Negative for abscess. Diffuse subcutaneous edema. There is 4 mm linear metallic foreign body inthe soft tissues between the bases of first and second proximal phalanges(series 11 image 12). There is no inflammation surrounding the foreignbody. First MTP degenerative joint disease with subchondral cysts and marginal osteophytes. Bunion. Results discussed with Dr. Santos Short at 08/18/2024 8:33 AM. IMPRESSION: First IP septic arthritis with surrounding osteomyelitis involvinghead/neck of first proximal phalanx and base of first distal phalanx. us Santos Chappell IMG MRI PROCEDURES Fin al Result * Bacteria / Gilda Culture, Blood #2 (08/17/2024 11:56 AM CDT) Only the most recent of2 resultswithin the time period is included. Bacteria/Ashley da Culture, Blood No growth after 5 day/s of incubation. 08/22/2024 12:05 PM CDT [facility] Blood (Blood, Peripheral Draw) 08/17/2024 11:56 AM CDT 08/17/2024 12:00 PM CDT Comment:Specimen Source Site : Blood Kenneth Nevarez P.A.-C. LAB MICROBIOLOGY - GENERAL ORDERABLES Final Result [facility] [address] [place] [address], [facility] [place] [address] * DX Toes Right 3 Views (08/17/2024 11:13 AM CDT) Anatomical Region Laterality Modality Lower Extremity, Toes, Muscu loskeletal RST LOS, Musculoskeletal ARZ LOS, Muskuloskeletal FLA LOS Right Digit al Radiography Impressions 08/17/2024 11:29 AM CDT Dorsal first digit ulcer with bony erosions around the first interphalangeal joint, suspicious for osteomyelitis. Narrative 08/17/2024 11:29 AM CDT EXAM: DX TOES RIGHT 3 VIEWS COMPARISON: Foot radiograph from 05/04/2024 FINDINGS: Skin ulcer at the dorsal medial aspect of the first digit, at the level of the interphalangeal joint. Subjacent erosions in the dorsal first distal phalanx base and adjacent medial aspect of the proximal phalanx head. Mild diffuse first digit soft tissue swelling. Mild to moderate first MTP joint degenerative change. Procedure Note Galdino Brito M.D. - 08/17/2024 EXAM: DX TOES RIGHT 3 VIEWS COMPARISON: Foot radiograph from 05/04/2024 FINDINGS: Skin ulcer at the dorsal medial aspect of the first digit, atthe level of the interphalangeal joint. Subjacent erosions in the dorsalfirst distal phalanx base and adjacent medial aspect of the proximalphalanx head. Mild diffuse first digit soft tissue swelling. Mild to moderate first MTP joint degenerativechange. IMPRESSION: Dorsal first digit ulcer with bony erosions around the firstinterphalangeal joint, suspicious for osteomyelitis. Kenneth Nevarez P.A.-C. IMG DIAGNOSTIC SHANTI GING PROCEDURES Final Result * Toe 1st, great-Emergency Department Image Exam (08/17/2024 10:55 AM CDT) Only the most recent of2 resultswithin the time period is included. 08/17/2024 10:5 4 AM CDT Narrative [facility] - 08/17/2024 10:56 AM CDT This order has been created and auto-finalized to support the import of images acquired without order. The clinical documentation to support these images can be found on the encounter that produced images. Provider Not In System IMG NON RAD IMAGING PROCE DURES Final Result I[facility] NA * (ABNORMAL) Basic Metabolic Panel (08/17/2024 10:53 AM CDT) Potassium, P 4.3 3.6 - 5.2 mmol/L 08/17/2024 11:13 AM CDT [facility] Sodium, P 138 135 - 145 mmol/L 08/17/2024 11:13 AM CDT [facility] Chloride, P 99 98 - 107 mmol/L 08/17/2024 11:13 AM CDT [facility] Bicarbonate, P 23 22 - 29 mmol/L 08/17/2024 11:13 AM CDT [facility] Anion Gap, P 16(H) 7 - 15 08/17/2024 11:13 AM CDT [facility] BUN (Blood Urea Nitrogen), P 17 8 - 24 mg/dL 08/17/2024 11:13 AM CDT [facility] Creatinine 0.74 0.74 - 1.35 mg/dL 08/17/2024 11:13 AM CDT [facility] Estimated GFR (eGFR) >90 >=60 mL/min/BSA 08/17/2024 11:13 AM CDT [facility] Comment: Estimated GFR calculated using the 2020 CKD_EPI creatinine equation. Calcium, Total, P 9.4 8.6 - 10.0 mg/dL 08/17/2024 11:13 AM CDT [facility] Glucose, P 207(H) 70 - 140 mg/dL 08/17/2024 11:13 AM CDT [facility] Blood (Blood, Venous) 08/17/2024 10:53 AM CDT 08/17/2024 10:55 AM CDT Kenneth FranklinA.-C. LAB BLOOD ADD-ON F inal Result Performing Organization Address City/[facility]/ZIP Co de Phone Number [facility] [address] [place] [phone], [facility] in [address] [address] * Lactate for Sepsis with Reflex (08/17/2024 10:52 AM CDT) Lactate, P 1.0 0.5 - 2.2 mmol/L 08/17/2024 12:08 PM CDT [facility] Blood (Blood, Venous) 08/17/2024 10:52 AM CDT 08/17/2024 11:59 AM CDT us Kenneth Rodriguez.A.-C. LAB BLOOD NON ADD- ON Final Result Performing Organization Address [facility]/ZIP Co de Phone Number [facility] [address] [place] [phone], [facility] in [address] [address] * (ABNORMAL) CRP (C-Reactive Protein) (08/17/2024 10:52 AM CDT) C-Reactive Protein (CRP), P 17.2(H) <5.0 mg/L 08/17/2024 11:24 AM CDT [facility] Blood (Blood, Venous) 08/17/2024 10:52 AM CDT 08/17/2024 11:08 AM CDT Kenneth Nev[facility] P[facility] LAB BLOOD ADD-ON F inal Result Performing Organization Address [facility] Co de Phone Number [facility] [address] [place] [id number], [facility] in [address] [address] * Albumin, Random, Urine (11/01/2023 8:30 AM CDT) Albumin, Random, U <5.0 mg/L 2023 2:44 PM CDT [facility] Comment: ----ADDITIONAL INFORMATION---- This test has been modified from the heavy machinery operator's instructions. Its performance characteristics were determined by [facility] in a manner consistent with CLIA requirements. This test has not been cleared or approved by the U.S. Food and Drug Administration. Creatinine 30 mg/dL 11/01/2023 2:44 PM CDT [facility]TO Albumin/Creatinine Ratio <17 <17 mg/g 11/01/2023 2:44 PM CDT [facility]TO Comment: This ratio may not correspond with the reference range because one or both of the values used to calculate the ratio was above or below the quantification limits. Urine (Urine, Midstream) 11/01/2023 8:30 AM CDT 11/01/2023 2:20 PM CDT us Olimpia Escalera APRN, C.N.P., M.S.N. LAB URIN E ORDERABLES Final Result Performing Organization Address [facility]/ZIP Co de Phone Number [facility] [address] [place] [phone], [facility] in [address] [place] [address] * Lipid Panel (11/01/2023 8:23 AM CDT) Triglycerides 54 mg/dL 11/01/2023 9:49 AM CDT [facility] Comment: ----REFERENCE VALUE---- Normal: <150 mg/dL Borderline High: 150-199 mg/dL High: 200-499 mg/dL Very High: > or =500 mg/dL Cholesterol, Total 115 mg/dL 2023 9:49 AM CDT [facility] Comment: ----REFERENCE VALUE---- Desirable: < 200 mg/dL Borderline High: 200 - 239 mg/dL High: > or = 240 mg/dL Cholesterol, LDL, Calculated 62 mg/dL 11/01/2023 9:49 AM CDT [facility] Comment: ----REFERENCE VALUE---- Desirable: <100 mg/dL Above Desirable: 100-129 mg/dL Borderline High: 130-159 mg/dL High: 160-189 mg/dL Very High: >=190 mg/dL ----ADDITIONAL INFORMATION---- LDL cholesterol calculated using the Bella/NIH equation. Cholesterol, HDL 41 >=40 mg/dL 11/01/19 9:49 AM CDT [facility] Cholesterol, Non-HDL, Calculated 74 mg/dL 11/01/2023 9:49 AM CDT [facility] Comment: ----REFERENCE VALUE---- Desirable: <130 mg/dL Above Desirable: 130-159 mg/dL Borderline High: 160-189 mg/dL High: 190-219 mg/dL Very High: > or =220 mg/dL Fasting (8 HR or more) Yes 11/01/2023 8:23 AM CDT [facility] Blood (Blood, Venous) 11/01/2023 8:23 AM CDT 11/01/2023 8:23 AM CDT us Olimpia Escalera APRN, C.N.P., M.S.N. LAB BLOO D ADD-ON Final Result [facility] [address] [place] [address], [facility] in [place] [address] [facility] [place] [address] * Hepatitis B Surface Antigen (08/18/2022 12:53 PM CDT) HBs Antigen, S Nonreactive Nonreactive 08/18/2022 2:[address] [facility] Blood (Blood, Venous) 08/18/2022 12:53 PM CDT 08/18/2022 12:57 PM CDT us Esperanza Abel LAB MICROBIOLOGY - BLOOD ORDERAB LES Final Result [facility] [address] [place] [address], [facility] in [place] [address] [place] [address] from Last 3 Months or Most Recently Relevant to Health Maintenance Insurance [address] [place] Florez [phone] [facility] Care Teams Engraver Copperplate Relationship Specialty Start Date End Date Olimpia Escalera APRN, C.N.P., M.S.N. [address] [place] [address] [place]ore[place] [phone] PCP - General 08/21/19
--- OUTSIDE RECORDS SUMMARY | 2024-10-31 10:57 | XMS_ITS | Encounter Summary ---
Author Organization [facility] Address [address] [place] [address] Care Team Providers Care Director Embalmer Name Role Phone Olimpia Escalera APRN, C.N.P., M.S.N. Primary Care Provider Encounter Details Date Type Department Care Team (Late st Contact Info) Description 09/19/2024 Clinical Communication Department of Family Medicine, [facility], in [place] [address] [place] [phone] Olimpia Escalera APRN, C.N.P., M.S.N. [address] [place] [phone] Social History Tobacco Use Types Packs/Day Years Used Date Smoking Tobacco: Every Day Cigarettes 1 20 Smokeless Tobacco: Never Comments:refused Alcohol Use Standard Drinks/Week Comments Yes [...] and Family Not on file 04/30/2020 Attends Jainism Services Not on file 04/30 Do you belong to any clubs o r organizations such as yazidi groups, unions, fraternal or athletic groups, or [...] PHQ-2 Answer Date Recorded PHQ-2 Score 0 11/02/2023 Hunger Vital Sign Answer Date Recorded Within [...] Sex Assigned at Male 03/21/2017 4:02 PM TRAINS DISPATCHER SUPERVISOR Legal Sex Male 9:13 PM TRAINS DISPATCHER SUPERVISOR Gender Identity Male 03/21/2017 4:02 PM TRAINS DISPATCHER SUPERVISOR Sexual Orientation Straight 03/21/2017 4: 02 PM TRAINS DISPATCHER SUPERVISOR documented as of this encounter Plan of Treatment Upcoming Encounters Date Type Department Care Team (Late st Contact Info) Description 11/24/2024 8:10 AM CDT Appointment Department of Laboratory Medicine in [address] [place] [phone] Olimpia Escalera APRN, C.N.P., M.S.N. [address] [place] [address], [place] [phone] 11/25/2024 11:40 AM CDT Office Visit Department of Family Medicine, [facility], in [address] [place] [address] Olimpia Escalera APRN, C.N.P., M.S.N. [address] [place] [address], [place] [phone] Discharge Disposition: Home or Self Care documented as of this encounter Visit Diagnoses Not on filedocumented in this encounter Additional Health Concerns Assessment Noted Time PHQ-9 Depression Total Score: 6 10/13/19 20 2:04 PM CDT documented as of this encounter Care Teams Director Embalmer Relationship Specialty Start Date End Date Olimpia Escalera APRN, C.N.P., M.S.N. [address] [place] [address], [place] [phone] PCP - General 08/21/19 documented as of this encounter
--- OUTSIDE RECORDS SUMMARY | 2024-10-31 10:57 | XMS_ITS | Encounter Summary ---
Author Organization [facility] Address [address] [place] [address] Care Team Providers Care Tissue Specialist Name Role Phone Olimpia Escalera APRN, C.N.P., M.S.N. Primary Care Provider Encounter Details Date Type Department Care Team (Late st Contact Info) Description 10/15/2024 Clinical Communication Department of Family Medicine, [facility], in [place] [address] [place] [phone] Olimpia Escalera APRN, C.N.P., M.S.N. [address] [place] [phone] Social History Tobacco Use Types Packs/Day [...] and Family Not on file 04/30/2020 Attends [employer] Not on file 04/30 Do you belong to any clubs o r organizations such as jainism groups, unions, fraternal or athletic groups, or [...] Sex Assigned at Male 03/21/2017 4:02 PM MUTUAL FUND ANALYST Legal Sex Male 9:13 PM MUTUAL FUND ANALYST Gender Identity Male 03/21/2017 4:02 PM MUTUAL FUND ANALYST Sexual Orientation Straight 03/21/2017 4: 02 PM MUTUAL FUND ANALYST documented as of this encounter Plan of Treatment Upcoming Encounters Date Type Department Care Team (Late st Contact Info) Description 11/24/2024 8:10 AM CDT Appointment Department of Laboratory Medicine in [address] [place] [phone] Olimpia Escalera APRN, C.N.P., M.S.N. [address] [place] [address], [place] [phone] 11/25/2024 11:40 AM CDT Office Visit Department of Family Medicine, [facility], in [address] [place] [phone] Olimpia Escalera APRN, C.N.P., M.S.N. [address] [place] [address], [place] [phone] Discharge Disposition: Home or Self Care documented as of this encounter Visit Diagnoses Not on filedocumented in this encounter Additional Health Concerns Assessment Noted Time PHQ-9 Depression Total Score: 6 10/13/19 20 2:04 PM CDT documented as of this encounter Care Teams Tissue Specialist Relationship Specialty Start Date End Date Olimpia Escalera APRN, C.N.P., M.S.N. [address] [place] [address], [place] [phone] PCP - General 08/21/19 documented as of this encounter
--- OUTSIDE RECORDS SUMMARY | 2024-10-31 10:57 | XMS_ITS | Encounter Summary ---
Author Organization [facility] Address [address] [place] [address] Care Team Providers Care Balance Wheel Hand Filer Name Role Phone Olimpia Escalera APRN, C.N.P., M.S.N. Primary Care Provider Encounter Details Date Type Department Care Team ([facility] st Contact Info) Description 10/14/2024 Orders Only [facility] Olimpia Escalera APRN, C.N.P., M.S.N. [address] [place] [address] [place] [phone] Diabetes Mellitus Type 2 With Diabetic Neuropathy (HCC) Social History Tobacco Use Types Packs/Day Years [...] and Family Not on file 04/30/2020 Attends Judaism Services Not on file 04/30 Do you belong to any clubs o r organizations such as evangelical groups, unions, fraternal or athletic groups, or [...] Sex Assigned at Male 03/21/2017 4:02 PM TECHNOLOGY SALES CONSULTANT Legal Sex Male 9:13 PM TECHNOLOGY SALES CONSULTANT Gender Identity Male 03/21/2017 4:02 PM TECHNOLOGY SALES CONSULTANT Sexual Orientation Straight 03/21/2017 4: 02 PM TECHNOLOGY SALES CONSULTANT documented as of this encounter Plan of Treatment Upcoming Encounters Date Type Department Care Team (Late st Contact Info) Description 11/24/2024 8:10 AM CDT Appointment Department of Laboratory Medicine in [address] [place] [phone] Olimpia Escalera APRN C.N.P., M.S.N. [address] [place] [address], [place] [phone] 11/25/2024 11:40 AM CDT Office Visit Department of Family Medicine, [facility], in [address] [place] [phone] Olimpia Escalera APRN, C.N.P., M.S.N. [address] [place] [address], [place] [phone] Discharge Disposition: Home or Self Care Scheduled Orders Name Type Priority Associated Diagnoses Orde r Schedule Albumin, Random, Urine Lab Routine Diabetes Mellitus Type 2 With Diabetic Neuropathy (HCC) Expected: 10/28/2024, Expires: 04/02/2025 documented as of this encounter Visit Diagnoses Diagnosis Diabetes Mellitus Type 2 With Diabetic Neuropathy (HCC) documented in this encounter Additional Health Concerns Assessment Noted Time PHQ-9 Depression Total Score: 6 10/13/19 2:04 PM CDT documented as of this encounter Care Teams Balance Wheel Hand Filer Relationship Specialty Start Date End Date Olimpia Escalera APRN C.N.P., M.S.N. [address] [place] [address], [place] [phone] PCP - General 08/21/19 documented as of this encounter
--- OUTSIDE RECORDS SUMMARY | 2024-10-31 10:57 | XMS_ITS | Clinical Summary ---
Author Organization [facility] Address [address] [place] [id number] Care Team Providers Care Market Specialist Name Role Phone Olimpia Escalera NP Primary Care Provider [phone] Allergies No known active allergies Medications amLODIPine 10 mg tablet Take 10 mg by mouth once daily. 11/02/19 Active allopurinoL 100 mg tablet Take 100 mg by mouth once daily. 11/02/19 24 Active Lantus Solostar U-100 Insulin 100 unit/mL (3 mL) pen Inject 16 units subcutaneous before bedtime. 11/02/19 24 Active metoprolol succinate 50 mg sustained-relea se tablet Take 50 mg by mouth once daily. Do not crush or chew 11/02/19 Active lisinopriL 40 mg tablet Take 40 mg by mouth once daily. 11/02/19 24 Active atorvastatin 40 mg tablet Take 40 mg by mouth at bedtime. 11/02/19 24 Active empagliflozin 25 mg tablet Take 25 mg by mouth once daily. 11/02/19 Active glimepiride 4 mg tablet Take 8 mg by mouth once daily with a meal. 11/02/19 24 Active metFORMIN 500 mg Extended-Releas e tablet Take 2,000 mg by mouth once daily with evening meal. 11/02/19 24 Active gabapentin 300 mg capsule Take 300 mg by mouth at bedtime. 11/02/19 Active aspirin 81 mg enteric coated tablet Take 81 mg by mouth once daily. Active ibuprofen 200 mg tablet Take 200 mg by mouth every 6 hours if needed for Pain. Active oxyCODONE 5 mg immediate release tabletIndicatio ns:Toe osteomyelitis, right (HC),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 mellitus, with bone involvement without evidence of necrosis (HC),Post-opera tive pain Take 2 Tablets (10 mg) by mouth every 6 hours if needed for Pain (For moderate to severe pain.). 21 Tablet 08/21/19 25 Active clopidogreL (Plavix) 75 mg tablet Take 75 mg by mouth once daily in the morning. Active oxyCODONE-aceta minophen 5-325 mg per tabletIndicatio ns:Post-operati ve state Take 1 Tablet by mouth every 4 hours if needed for Pain. Take 1 tablet by mouth every 4 hours as needed for pain. Max acetaminophen dose: 3000 mg in 24 hours. 30 Tablet 10/29/19 25 025 Active crutchIndicatio ns:Post-operati ve state For home use. 2 Each 10/29/19 25 Active doxycycline hyclate 100 mg capsuleIndicati ons:bone infection Take 1 Capsule (100 mg) by mouth two times daily for 7 days. 14 Capsule 10/29/19 25 025 Active WalkerIndicatio ns:Delayed surgical wound healing of foot amputation stump (HC),Toe osteomyelitis, right (HC),Type 2 diabetes mellitus with other diabetic arthropathy, with long-term current use of insulin (HC) Walker with front wheels for home use. 1 Each 10/29/19 25 Active doxycycline 100 mg tablet Take 100 mg by mouth two times daily. 025 Discontinu ed(*IP Discontinu ed) Knee WalkerIndicatio ns:Post-operati ve state For home use. *Note that item is a rental.* Height: 5'11 Weight: 197 lbs Diagnosis: Post operative state Length of need: 6 - 8 weeks 1 Each 10/29/19 25 025 Active Problems Problem Noted Date Diagnosed Date Type 2 diabetes mellitus wit h diabetic arthropathy, with long-term current use of insulin 08/17/2024 Primary hypertension 08/17/2024 Gout 08/17/2024 Diabetic ulcer of toe of rig ht foot associated with type 2 diabetes mellitus, with bone involvement without evidence of necrosis 08/17/2024 Toe osteomyelitis, right 08/17/2024 Hyperlipidemia 08/17/2024 Encounters Date Type Department Care Team Description 10/28/2024 9:50 AM CDT - 10/28/2024 10:56 AM CDT Surgery [address] [address] Immanuel Krause DPM AMPUTATION TOE-RIGHT 10/28/2024 9:16 AM CDT Anesthesia Event [address] [address] Rickie Amin DO 10/28/2024 8:30 AM CDT - 10/28/2024 12:10 PM CDT Hospital Encounter [address] [address] Immanuel Krause DPM Post-operative state (Primary Dx); 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 mellitus, with bone involvement without evidence of necrosis (HC); Delayed surgical wound healing of foot amputation stump (HC); Toe osteomyelitis, right (HC); Type 2 diabetes mellitus with other diabetic arthropathy, with long-term current use of insulin (HC) Discharge Disposition: Home Self Care 10/28/2024 Travel 08/19/2024 10:48 AM CDT Anesthesia Event [address] [address] Rickie Amin DO Murren, Leland Daniel, CRNA 08/19/2024 10:35 AM CDT - 08/19/2024 11:39 AM CDT Surgery [address] [address] Immanuel Krause DPM PARTIAL FIRST RAY AMPUTATION -RIGHT 08/17/2024 4:13 PM CDT - 08/20/2024 4:46 PM CDT Hospital Encounter [address] [address] Santos Short MBBS HospitalistAlexander Md, Gisell Cassidy MD Toe osteomyelitis, right (HC) (Primary Dx); 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 0 08/17/2024 Financial Resource Strain Answer Date R ecorded Difficulty of Paying Living Expenses 3 08/17/2024 Difficulty of Paying Living Expenses Not on file 08/17/2024 Food Insecurity Answer Date Recorded Do you worry your food will run out before you are able to buy more? 1 08/17/2024 Transportation Needs Answer Date Record ed Does lack of transportation keep you from medica l appointments? 1 08/17/2024 Does lack of transportation keep you from work, meetings or getting things that you need? 1 08/17/2024 Housing Stability Answer Date Recorded What is your housing situation today? 1 08/17/2024 Interpersonal Safety Answer Date Record ed Are you being hit, kicked, p ushed or yelled at (see row info)? No 08/17/2024 Interpersonal Safety Abuse 12 - 18 Not on file 08/17/2024 Interpersonal Safety Ambulatory Vulnerability No t on file 08/17/2024 Utilities Answer Date Recorded Do you have trouble paying f or utilities (for example, heat, electricity, water, phone)? 1 08/17/2024 Sex and Gender Information Value Date Recorded Sex Assigned at Not on file Legal Sex Male 5:54 AM POLITICAL AIDE Gender Identity Not on file Sexual Orientation Not on file Obstetrics History Last Filed Vital Signs Vital Sign Reading Time Taken Comments Blood Pressure 137/76 10/28/2024 11:51 AM CDT Pulse 63 10/28/2024 11:51 AM CDT Temperature 36.3 C (97.4 F) 10/28/2024 10:49 AM CDT Respiratory Rate 16 10/28/2024 11:51 AM CDT Oxygen Saturation 99% 10/28/2024 11:51 AM CDT Inhaled Oxygen Concentration - - Weight 89.4 kg (197 lb) 10/28/2024 8:38 AM CDT Height 180.3 cm (5' 10.98) 10/28/2024 8:38 AM C DT Body Mass Index 27.49 10/28/2024 8:38 AM CDT Plan of Treatment Health Maintenance Due Date Last Done Comments Tdap 1980 Depression screening for age 12+ 1981 HIV for age 15-65 1984 BMI (ht and wt on same day) for age 18+ 1987 Hepatitis C screening for age 18-79 1987 Hepatitis B series for 19+ ( 1 of 3 - 19+ 3-dose series) 1988 Pneumococcal series for age 50+ (1 of 2 - PCV) 1988 Tetanus booster 1989 Colonoscopy through age 75 2014 Lipids for age 45-75 2014 Zoster (shingles) series for age 50+ (1 of 2) 2019 COVID-19 vaccine series ( season) 2024 01/28/2021, 01/03/2021 Influenza Vaccine (Season Ended) 2025 Procedures Procedure Name Priority Date/Time Associated Diagnosis Comments GLUCOSE METER Routine 10/28/2024 10:36 AM CDT AEROBIC BACTERIAL CULTURE, STAIN Today 10/28/2024 9:52 AM CDT SUPRAGLOTTIC-LMA Routine 10/28/2024 9:31 AM CDT GLUCOSE METER Routine 10/28/2024 8:42 AM CDT GLUCOSE METER Routine 08/20/2024 11:03 AM CDT GLUCOSE METER Routine 08/20/2024 8:07 AM CDT POTASSIUM Early AM 08/20/2024 5:39 AM CDT MAGNESIUM Early AM 08/20/2024 5:39 AM CDT WHITE BLOOD COUNT Early AM 08/20/2024 5:3 9 AM CDT CREATININE Early AM 08/20/2024 5:39 AM CDT GLUCOSE METER Routine 08/19/2024 8:07 PM CDT GLUCOSE METER Routine 08/19/2024 4:32 PM CDT GLUCOSE METER Routine 08/19/2024 12:21 PM CDT PATH TISSUE EXAM Today 08/19/2024 11:3 4 AM CDT AEROBIC BACTERIAL CULTURE, STAIN Routine 08/19/2024 11:20 AM CDT ANAEROBIC CULTURE Routine 08/19/2024 11: 20 AM CDT AMPUTATION TOE 08/19/2024 10:48 AM CDT RIGHT BIG TOE AMP POTASSIUM Early AM 08/19/2024 9:09 AM CDT MAGNESIUM Early AM 08/19/2024 9:09 AM CDT C-REACTIVE PROTEIN Timed 08/19/2024 9: 09 AM CDT WHITE BLOOD COUNT Early AM 08/19/2024 9:0 9 AM CDT CREATININE Early AM 08/19/2024 9:09 AM CDT VANCOMYCIN TROUGH Timed 08/19/2024 9:0 8 AM CDT GLUCOSE METER Routine 08/19/2024 7:06 AM CDT GLUCOSE METER Routine 08/18/2024 8:13 PM CDT GLUCOSE METER Routine 08/18/2024 5:55 PM CDT GLUCOSE METER Routine 08/18/2024 11:35 AM CDT GLUCOSE METER Routine 08/18/2024 8:33 AM CDT MR FOOT RIGHT WWO Routine 08/18/2024 8:2 1 AM CDT C-REACTIVE PROTEIN Timed 08/18/2024 5: 33 AM CDT PLATELET COUNT Early AM 08/18/2024 5:33 AM CDT HEMOGLOBIN Early AM 08/18/2024 5:33 AM CDT WHITE BLOOD COUNT Early AM 08/18/2024 5:3 3 AM CDT MAGNESIUM Early AM 08/18/2024 5:33 AM CDT CREATININE Early AM 08/18/2024 5:33 AM CDT POTASSIUM Early AM 08/18/2024 5:33 AM CDT SODIUM Early AM 08/18/2024 5:33 AM CDT GLUCOSE METER Routine 08/17/2024 8:22 PM CDT MRSA/SA PCR Today 08/17/2024 4:54 PM CDT GLUCOSE METER Routine 08/17/2024 4:49 PM CDT from Last 3 Months Results * (ABNORMAL) GLUCOSE METER (10/28/2024 10:36 AM CDT) Only the most recent of14 resultswithin the time period is included. GLUCOSE METER 177(H) 65 - 100 mg/dL 10/28/2024 10:39 AM CDT [facility] Blood BLOOD SPECIMEN / Unknown 10/28/2024 10:36 AM CDT 10/28/2024 10:39 AM CDT Immanuel Ad Tokarski DPM CHEMISTRY Fin al Result Performing Organization Address City/[facility] Co de Phone Number [facility] [address] [place] [phone] * Supraglottic (10/28/2024 9:31 AM CDT) Narrative Connor Campbell, CHILD SUPPORT OFFICER - 10/28/2024 9:31 AM CDT Connor Campbell, CHILD SUPPORT OFFICER 10/28/2024 9:31 AM Procedure: Supraglottic Patient location during procedure: OR Supraglottic Airway Properties Mask Ventilation: easy Type: i-gel Tube Size: 4 Insertion Attempts: 1 Placement Verification: auscultation and CO2 detection Assessment Assessment: atraumatic and dentition unchanged Airway Intervention: check minimal leak us Connor Campbell CHILD SUPPORT OFFICER ANESTHESIA PX NOTE ORDER CHANTELL Final Result * WHITE BLOOD COUNT (08/20/2024 5:39 AM CDT) Only the most recent of3 resultswithin the time period is included. WHITE BLOOD COUNT 10.4 4.5 - 11.0 thou/cu mm 08/20/2024 5:52 AM CDT [facility] Blood BLOOD SPECIMEN / Unknown Venipuncture / Unknown 08/20/2024 5:39 AM CDT 08/20/2024 5:49 AM CDT us Santos MCELROYBS HEMATOLOGY Final Result Performing Organization Address [facility] Co de Phone Number [address] [phone] * POTASSIUM (08/20/2024 5:39 AM CDT) Only the most recent of3 resultswithin the time period is included. POTASSIUM 4.3 3.5 - 5.1 mmol/L 08/20/2024 6:10 AM CDT [facility] Blood BLOOD SPECIMEN / Unknown Venipuncture / Unknown 08/20/2024 5:39 AM CDT 08/20/2024 5:48 AM CDT us Myriam Jose Miguel RN CHEMISTRY Final Result Performing Organization Address [facility]/ZIP Co de Phone Number [facility] [address] [address] * CREATININE (08/20/2024 5:39 AM CDT) Only the most recent of3 resultswithin the time period is included. eGFR >90 >90 mL/min/1.7 3m2 08/20/2024 6:10 AM CDT [facility] Comment:As of 2021, eG FR is calculated by the CKD-EPI creatinine equation without race adjustment. eGFR can be influenced by muscle mass, exercise, and diet. The reported eGFR is an estimation only and is only applicable if the renal function is stable. CREATININE 0.77 0.70 - 1.20 mg/dL 08/20/2024 6:10 AM CDT [facility] Blood BLOOD SPECIMEN / Unknown Venipuncture / Unknown 08/20/2024 5:39 AM CDT 08/20/2024 5:48 AM CDT us Santos EDWARDS CHEMISTRY Final Result Performing Organization Address [facility] Co de Phone Number [facility] [address] [phone] * MAGNESIUM (08/20/2024 5:39 AM CDT) Only the most recent of3 resultswithin the time period is included. MAGNESIUM 2.1 1.6 - 2.6 mg/dL 08/20/2024 6:10 AM CDT [facility] Blood BLOOD SPECIMEN / Unknown Venipuncture / Unknown 08/20/2024 5:39 AM CDT 08/20/2024 5:48 AM CDT us Myriam Gillespie RN CHEMISTRY Final Result Performing Organization Address [facility] Co de Phone Number [facility] [address] [address] * PATH TISSUE EXAM (08/19/2024 11:34 AM CDT) Case Report Pathology Report Case: [id number] Authorizing Provider: Immanuel Krause, Collected: 08/19/2024 1134 DPM Ordering Location: [facility] Received: 08/19/2024 1156 Pathologist: Christopher Ordonez MD Specimen: Right Great Toe, 1st Metatarsal Head 08/22/2024 12:14 PM CDT [facility] ENTRAL LABORATORY Final Diagnosis A) BONE, FIRST METATARSAL HEAD, EXCISION: 1. Bone with remodeling change, marrow edema, and focal chronic inflammation 2. Margin of resection is viable and uninvolved 3. See comment 08/22/2024 12:14 PM CDT [facility] at 1214 CDT Comment In the correct clinical context, the findings could be compatible with chronic osteomyelitis. Correlation with imaging and culture data is required for definitive diagnosis. 08/22/2024 12:14 PM CDT [facility] Clinical Information Osteomyelitis, peripheral vascular disease 08/22/2024 12:14 PM CDT [facility] Gross Description A) Received in formalin, labeled with the patient's name and first metatarsal head, is a 2.8 x 2.5 x 1.4 cm zafar, firm portion of bone. One end consist of a zafar-white, semidisrupted and semismooth articular surface. The opposite end consists of a brown, trabeculated, smooth cut surface, which is inked blue. The specimen is sectioned perpendicular to the ink to reveal grossly unremarkable trabeculated bone. The specimen is entirely submitted in 5 cassettes, following decalcification. BING 08/20/2024 08/22/2024 12:14 PM CDT [facility] Microscopic Description The final diagnosis is based on microscopic examination of appropriate sections of all specimens. 08/22/2024 12:14 PM CDT [facility] Additional Information Interpreted at [facility], Central Laboratory - [address] [place] [address] S[facility] [address] [address] 08/22/2024 12:14 PM CDT [facility] LABORATORY-C ENTRAL LABORATORY Tissue (Right Great Toe) 08/19/2024 11:34 AM CDT 08/19/2024 11:56 AM CDT Immanuel Krause DPJojo PATHOLOGY/CYTOLOGY Final Result [facility] [address] [place] [address], [place] * (ABNORMAL) AEROBIC BACTERIAL CULTURE, STAIN (08/19/2024 11:20 AM CDT) CULTURE RESULT(A) 08/23/2024 1:23 PM CDT [facility] CULTURE 4+ Escherichia coli 08/23/2024 1:23 PM CDT [facility] CULTURE 4+ Streptococcus agalactiae (Strep Group B) 08/23/2024 1:23 PM CDT [facility] CULTURE 4+ Staphylococcus aureus 08/23/2024 1:23 PM CDT [facility] CULTURE 3+ Mixed etta present 08/23/2024 1:23 PM CDT [facility] GRAM STAIN No PMNs 08/23/2024 1:23 PM CDT [facility] GRAM STAIN No RBCs 08/23/2024 1:23 PM CDT [facility] GRAM STAIN 1+ Epithelial cells 08/23/2024 1:23 PM CDT [facility] GRAM STAIN 3+ Gram Positive Cocci 08/23/2024 1:23 PM CDT [facility] Tissue (Right foot) Non-Blood / Unknown 08/19/2024 11:20 AM CDT 08/19/2024 12:00 PM CDT Narrative [facility] - 08/23/2024 1:23 PM CDT Mixed Etta; no Strep. pneumoniae, or Pseudomonas aeruginosa isolated Organism Antibiotic Method Susceptibility Escherichia coli TRIMETHOPRIM/SULF <=1/19: S Escherichia coli AMPICILLIN <=2: S Escherichia coli CEFAZOLIN 2: S Escherichia coli GENTAMICIN <=1: S Escherichia coli CEFTRIAXONE <=0.25: S Escherichia coli CEFTAZIDIME <=0.5: S Escherichia coli LEVOFLOXACIN <=0.12: S Escherichia coli CIPROFLOXACIN <=0.06: S Escherichia coli PIPERACILLIN/TAZO <=4: S Escherichia coli AMPICILLIN/SULBACTAM <=2: S Escherichia coli CEFEPIME <=0.12: S Escherichia coli MEROPENEM <=0.25: S Streptococcus agalactiae (St rep Group B) PENICILLIN <=0.06: S Streptococcus agalactiae (St rep Group B) CEFTRIAXONE <=0.12: S Streptococcus agalactiae (St rep Group B) ERYTHROMYCIN >=8: R Streptococcus agalactiae (St rep Group B) CLINDAMYCIN >=1: R Streptococcus agalactiae (St rep Group B) VANCOMYCIN 0.5: S Streptococcus agalactiae (St rep Group B) AMPICILLIN <=0.25: S Streptococcus agalactiae (St rep Group B) CLARITHROMYCIN R Staphylococcus aureus OXACILLIN 0.5: S Comment:Oxacillin melendrez sceptible should not be interpreted as penicillin or amoxicillin susceptible. Staphylococcus aureus CLINDAMYCIN 0.25: S Staphylococcus aureus DOXYCYCLINE <=0.5: S Staphylococcus aureus CEFAZOLIN S Staphylococcus aureus TRIMETHOPRIM/SULF : R Immanuel Krause DPM MICROBIOLOGY Isai yeison Result - Final Performing Organization Address [facility] Co de Phone Number [facility] [address] [place] [address], * ANAEROBIC CULTURE (08/19/2024 11:20 AM CDT) CULTURE Mixed anaerobic and aerobic organisms present: no further workup pending. 08/25/2024 2:05 PM CDT [facility] Tissue (Right foot) Non-Blood / Unknown 08/19/2024 11:20 AM CDT 08/19/2024 12:00 PM CDT Immanuel Krause DPM MICROBIOLOGY Fin al Result Performing Organization Address [facility] Co de Phone Number [facility] [address] [place] [address], * (ABNORMAL) C-REACTIVE PROTEIN (08/19/2024 9:09 AM CDT) Only the most recent of2 resultswithin the time period is included. Pathologist [facility] C-REACTIVE PROTEIN 3.1(H) <0.5 mg/dL 08/19/2024 9:43 AM CDT [facility] Blood BLOOD SPECIMEN / Unknown Venipuncture / Unknown 08/19/2024 9:09 AM CDT 08/19/2024 9:11 AM CDT [facility] Pato EDWARDS CHEMISTRY Final Result Performing Organization Address City/[facility]/ZIP Co de Phone Number [facility] [address] [place] [phone] * VANCOMYCIN TROUGH (08/19/2024 9:08 AM CDT) Pathologist [facility] VANCOMYCIN,TRO UGH 14.1 7.0 - 20.0 ug/mL 08/19/2024 9:48 AM T [facility] DATE OF LAST DOSE,TROUGH Not Given 08/19/2024 9:48 AM [facility] TIME OF LAST DOSE,TROUGH Not Given 08/19/2024 9:48 AM T [facility] Blood BLOOD SPECIMEN / Unknown Venipuncture / Unknown 08/19/2024 9:08 AM CDT 08/19/2024 9:11 AM CDT [facility] Pato EDWARDS CHEMISTRY Final Result Performing Organization Address City/[facility]/ZIP Co de Phone Number [facility] [address] [address] * MR FOOT RIGHT WWO (08/18/2024 8:21 AM CDT) Anatomical Region Laterality Modality FOOT R Magnetic Resonan ce Santos EDWARDS MR Final Result * PLATELET COUNT (08/18/2024 5:33 AM CDT) PLATELET COUNT 340 140 - 440 thou/cu mm 08/18/2024 5:58 AM CDT [facility] MPV 8.3 6.5 - 11.0 fL 08/18/2024 5:58 AM CDT [facility] Blood BLOOD SPECIMEN / Unknown Venipuncture / Unknown 08/18/2024 5:33 AM CDT 08/18/2024 5:49 AM CDT Santos EDWARDS HEMATOLOGY Final Result Performing Organization Address [facility]/ZIP Co de Phone Number [address] [phone] * HEMOGLOBIN (08/18/2024 5:33 AM CDT) HEMOGLOBIN 15.5 13.5 - 17.5 g/dL 08/18/2024 5:58 AM CDT [facility] MCV 86 80 - 100 fL 08/18/2024 5:58 AM CDT [facility] Blood BLOOD SPECIMEN / Unknown Venipuncture / Unknown 08/18/2024 5:33 AM CDT 08/18/2024 5:49 AM CDT Santos EDWARDS HEMATOLOGY Final Result Performing Organization Address City/[facility]/ZIP Co de Phone Number [address] [phone] * SODIUM (08/18/2024 5:33 AM CDT) SODIUM 137 136 - 145 mmol/L 08/18/2024 6:10 AM CDT [facility] Blood BLOOD SPECIMEN / Unknown Venipuncture / Unknown 08/18/2024 5:33 AM CDT 08/18/2024 5:49 AM CDT Santos Mohamed Ali Burale MBBS CHEMISTRY Final Result [facility] [address] [address] * (ABNORMAL) MRSA/SA PCR (08/17/2024 4:54 PM CDT) MRSA DNA PCR Negative Negative 08/18/2024 12:43 PM CDT [facility] STAPHYLOCOCCUS AUREUS PCR Positive(A) Negative 08/18/2024 12:43 PM CDT [facility] Other SPECIMEN FROM INTERNAL NOSE / Unknown Non-Blood / Unknown 08/17/2024 4:54 PM CDT 08/17/2024 4:59 PM CDT Narrative [facility] - 08/18/2024 12:43 PM CDT S. aureus detected; NOT MRSA. Test result does not preclude MRSA nasal colonization. False negative for MRSA could be obtained if MRSA present in the sample is below threshold of detection. Santos Short [facility] MICROBIOLOGY Final Result Performing Organization Address [facility] Co de Phone Number [facility] [address] [place] [address], from Last 3 Months Insurance [facility] Advance Directives * Full Code (Latest Code Status on File) Date Activated Date Inactivated Comments 10/28/2024 7:00 AM 10/28/2024 3:07 PM Question Answer Comments Code Status Discussion: Reviewed Preferences * Full Code Date Activated Date Inactivated Comments 08/17/2024 4:16 PM 08/20/2024 6:51 PM Question Answer Comments Code Status Discussion: Reviewed Preferences Care Teams Market Specialist Relationship Specialty Start Date End Date Olimpia Escalera NP [address] [place] [address] [place] [phone] PCP - General Nurse Practitioner - Family 08/18/24
== END 2024-10-31 10:48 | disposition home or self-care (01) ==
PROVIDERS: PCP Nurse Practitioner Family; Visit Provider Nurse Practitioner Family
DX: E11.621 Type 2 diabetes mellitus with foot ulcer (principal); I73.9 Peripheral vascular disease, unspecified; L97.514 Non-pressure chronic ulcer of other part of right foot with necrosis of bone; I10 Essential (primary) hypertension; F17.203 Nicotine dependence unspecified, with withdrawal; Z79.4 Long term (current) use of insulin; Z79.84 Long term (current) use of oral hypoglycemic drugs
CPT/HCPCS: 71046; G0463

== ENCOUNTER 2024-11-07 12:30 | Outpatient (CLI) | payer BC, SELFPAY | END 2024-11-07 12:31 | disposition home or self-care (01) | PROVIDERS: PCP Nurse Practitioner Family; Visit Provider Nurse Practitioner Family | DX: E11.621 Type 2 diabetes mellitus with foot ulcer (principal); L97.514 Non-pressure chronic ulcer of other part of right foot with necrosis of bone; I73.9 Peripheral vascular disease, unspecified; I10 Essential (primary) hypertension; Z79.4 Long term (current) use of insulin; Z72.0 Tobacco use; Z79.84 Long term (current) use of oral hypoglycemic drugs | CPT/HCPCS: 82962; G0277; G0463 ==

== ENCOUNTER 2024-11-10 13:30 | Outpatient (RCR) | payer BC, SELFPAY | END 2024-11-10 23:59 | disposition home or self-care (01) | LOC: WOUND 13:30 | PROVIDERS: PCP Nurse Practitioner Family; Visit Provider Nurse Practitioner Family | DX: E11.621 Type 2 diabetes mellitus with foot ulcer (principal); I73.9 Peripheral vascular disease, unspecified; I10 Essential (primary) hypertension; L97.514 Non-pressure chronic ulcer of other part of right foot with necrosis of bone; Z89.411 Acquired absence of right great toe; Z79.4 Long term (current) use of insulin; Z79.84 Long term (current) use of oral hypoglycemic drugs; Z53.9 Procedure and treatment not carried out, unspecified reason; Z72.0 Tobacco use | CPT/HCPCS: 82962; G0277; G0463 ==

== ENCOUNTER 2024-11-12 13:00 | Outpatient (RCR) | payer BC, SELFPAY | END 2024-12-11 23:59 | disposition home or self-care (01) | LOC: WOUND 13:00 | PROVIDERS: PCP Nurse Practitioner Family; Visit Provider Surgery | DX: E11.621 Type 2 diabetes mellitus with foot ulcer (principal); I73.9 Peripheral vascular disease, unspecified; L97.514 Non-pressure chronic ulcer of other part of right foot with necrosis of bone; I10 Essential (primary) hypertension; Z79.84 Long term (current) use of oral hypoglycemic drugs | CPT/HCPCS: 82962; G0277 ==

== ENCOUNTER 2024-11-13 12:18 | Outpatient (CLI) | payer BC, SELFPAY | END 2024-11-13 12:19 | disposition home or self-care (01) | LOC: WOUND 12:18 | PROVIDERS: PCP Nurse Practitioner Family; Visit Provider Physician Assistant | DX: E11.621 Type 2 diabetes mellitus with foot ulcer (principal); I73.9 Peripheral vascular disease, unspecified; I10 Essential (primary) hypertension; L97.514 Non-pressure chronic ulcer of other part of right foot with necrosis of bone; Z79.4 Long term (current) use of insulin; Z79.84 Long term (current) use of oral hypoglycemic drugs | CPT/HCPCS: 82962; G0277; G0463 ==